=== PATIENT | male | born 2000 | race Caucasian/White ===

== ENCOUNTER 2020-04-14 20:52 | Emergency (ER) | payer SELFPAY ==
[~2020-04-14] VITALS: Ht 172.7 cm; Wt 86.0 kg
[2020-04-14] MEDS ORDERED: AMOX875T PO (21:29)
[2020-04-14] MEDS ORDERED: PRED50TA PO (21:29)
--- NOTE | 2020-04-14 21:29 | PHYS DOC ---
General Adult EDM: Chief Complaint: SORE THROAT HPI: HPI: Patient is a 19 year old male with history of tremors who presents to the ED today complaining of a sore throat enlarged tonsils and white patches, symptoms of been going on for couple days. He states today he tried scraping off the white patches from his throat and had some bleeding. Denies any fever. He states he been around some people who were tested for COVID-19 and had to quarantine themselves. He states that he tested negative. He states he has history of tonsillitis. He also states he has had intermittent fevers. (KATIANA SOLOMON APRN) Review of Systems: Review of Systems: Constitutional: Reports intermittent fevers Eyes: Denies change in visual acuity. [] HENT: Reports sore throat with white patches in the throat. Denies nasal congestion or sore throat. [] Respiratory: Denies cough or shortness of breath. [] Cardiovascular: Denies chest pain or edema. [] GI: Denies abdominal pain, nausea, vomiting, bloody stools or diarrhea. [] : Denies dysuria. [] Musculoskeletal: Denies back pain or joint pain. [] Integument: Denies rash. [] Neurologic: Denies headache, focal weakness or sensory changes. [] Psychiatric: Denies depression or anxiety. [] (KATIANA SOLOMON APRN) Heart Score: Risk Factors: Risk Factors: DM, Current or recent (<one month) smoker, HTN, HLP, family history of CAD, obesity. Risk Scores: Score 0 - 3: 2.5% MACE over next 6 weeks - Discharge Home Score 4 - 6: 20.3% MACE over next 6 weeks - Admit for Clinical Observation Score 7 - 10: 72.7% MACE over next 6 weeks - Early Invasive Strategies (KATIANA SOLOMON APRN) Physical Exam: PE: Constitutional: Well developed, well nourished, no acute distress, non-toxic appearance. [] HENT: Normocephalic, atraumatic, bilateral external ears normal, oropharynx moist, no oral exudates, nose normal. [] +2 tonsils with erythema, and small amount of exudate bilaterally. Midline uvula. Eyes: PERRLA, EOMI, conjunctiva normal, no discharge. [] Neck: Normal range of motion, no tenderness, supple, no stridor. [] Cardiovascular:Heart rate regular rhythm, no murmur [] Lungs & Thorax: Bilateral breath sounds clear to auscultation [] Abdomen: Bowel sounds normal, soft, no tenderness, no masses, no pulsatile masses. [] Skin: Warm, dry, no erythema, no rash. [] Back: No tenderness, no CVA tenderness. [] Extremities: No tenderness, no cyanosis, no clubbing, ROM intact, no edema. [] Neurologic: Alert and oriented X 3, normal motor function, normal sensory function, no focal deficits noted. Essential tremors noted Psychologic: Affect normal, judgement normal, mood normal. [] (KATIANA SOLOMON APRN) EKG: EKG: [] (KATIANA SOLOMON APRN) Radiology/Procedures: Radiology/Procedures: [] (KATIANA SOLOMON APRN) Course & Med Decision Making: Course & Med Decision Making Pertinent Labs and Imaging studies reviewed. (See chart for details) This is a 19-year-old male patient with physical exam of tonsillitis. We also tested him for COVID-19. Discharged on amoxicillin and prednisone. Salt water gargles recommended. Follow-up with ENT in 1 week. (KATIANA SOLOMON APRN) Course & Med Decision Making I have reviewed the PA/CLINICAL RESEARCH MANAGER's note and Plan of Care. I was available for consultation as needed during the patient's visit in the emergency department. I agree with the clinical impression, plans and disposition. (LUDWIN ESCAMILLA MD) Dragon Disclaimer: Dragon Disclaimer: This electronic medical record was generated, in whole or in part, using a voice recognition dictation system. (KATIANA SOLOMON APRN) Departure Departure Impression: Primary Impression: Acute tonsillitis Qualified Codes: J03.90 - Acute tonsillitis, unspecified Additional Impressions: Person under investigation for COVID-19 Fever Qualified Codes: R50.9 - Fever, unspecified Disposition: 01 DC HOME SELF CARE/HOMELESS Condition: STABLE Referrals: JOSE CHRISTIANSON MD follow up in 1-2 weeks Patient Instructions: Fever, Adult, Tonsillitis Additional Instructions: You were seen for tonsillitis. Take the prescribed antibiotics and prednisone until completed. Use salt water gargles as needed for sore throat. You were also tested for COVID-19. We will call you in 3-7 days with the results. Please quarantine yourself for now. Maintain good hand hygiene. Push fluids. Rest. Take tylenol or motrin for pain or fever Scripts Prednisone (PREDNISONE) 50 Mg Tablet 1 TAB PO DAILY, #5 TAB Prov: KATIANA SOLOMON APRN 04/14/20 Amoxicillin (AMOXICILLIN) 875 Mg Tablet 1 TAB PO BID, #20 TAB Prov: KATIANA SOLOMON APRN 04/14/20 KATIANA SOLOMON APRN Apr 14, 2020 21:29 LUDWIN ESCAMILLA MD Apr 15, 2020 01:21
[2020-04-15 00:56] VITALS: BP 140/74
--- NOTE | 2020-04-16 17:56 | NUR ---
IP: Attempted x 2 to call pt concerning COVID results. No answer. No means to leave a voicemail.
== END 2020-04-14 21:50 | disposition home or self-care (01) ==
LOC: ER 20:52
DX: J03.90 Acute tonsillitis, unspecified (principal); Z20.828 Contact with and (suspected) exposure to other viral communicable diseases
CPT/HCPCS: 99283; C9803; U0003